=== PATIENT | female | born 1950 | race Caucasian/White ===

== ENCOUNTER 2024-02-06 04:22 | Emergency (ER) | payer BC, MEDICARE ==
[~2024-02-06] VITALS: Ht 160 cm; Wt 68.0 kg
[~2024-02-06 04:22] MED LIST: MAGN400T8 PO
[2024-02-06] MEDS ORDERED: HYDROCODONE/APAP 5/325MG TABLET ONE (04:52)
[2024-02-06] MEDS ORDERED: ONDANSETRON 4 MG TAB.RAPDIS ONE (04:52)
[2024-02-06] MEDS ORDERED: LORAZEPAM 1 MG TABLET ONE (04:52)
[2024-02-06] MEDS: LORAZEPAM 1 MG TABLET PO ONE (04:58)
[2024-02-06] MEDS: HYDROCODONE/APAP 5/325MG TABLET PO ONE (04:59)
[2024-02-06] MEDS: ONDANSETRON 4 MG TAB.RAPDIS SL ONE (04:59)
[2024-02-06 07:26] VITALS: BP 128/65; TEMP 98; O2SAT 100
== END 2024-02-06 07:27 | disposition home or self-care (01) ==
LOC: ER 04:28
DX: M54.41 Lumbago with sciatica, right side (principal); I10 Essential (primary) hypertension; F41.9 Anxiety disorder, unspecified; E03.9 Hypothyroidism, unspecified; Z88.0 Allergy status to penicillin; Z88.2 Allergy status to sulfonamides; Z88.8 Allergy status to other drugs, medicaments and biological substances
CPT/HCPCS: 99284; Q0162

== ENCOUNTER 2025-04-30 06:03 | Emergency (ER) | payer BC, MEDICARE ==
[~2025-04-30] VITALS: Ht 165.1 cm; Wt 72.6 kg
[2025-04-30] MEDS ORDERED: oxyCODONE/APAP (5/325 MG) 1 UDTAB TABLET ONE (06:49)
[2025-04-30] MEDS ORDERED: ONDANSETRON 4 MG TAB.RAPDIS ONE (06:49)
[2025-04-30] MEDS: oxyCODONE/APAP (5/325 MG) 1 UDTAB TABLET PO ONE (06:56)
[2025-04-30] MEDS: ONDANSETRON 4 MG TAB.RAPDIS SL ONE (06:56)
[2025-04-30 08:53] VITALS: BP 151/91; TEMP 97.9; O2SAT 99
== END 2025-04-30 08:54 | disposition home or self-care (01) ==
LOC: ER 06:11
DX: R51.9 Headache, unspecified (principal); I11.9 Hypertensive heart disease without heart failure; E03.9 Hypothyroidism, unspecified; I34.1 Nonrheumatic mitral (valve) prolapse; Z88.0 Allergy status to penicillin; Z88.2 Allergy status to sulfonamides; Z88.6 Allergy status to analgesic agent
CPT/HCPCS: 99283; Q0162

== ENCOUNTER 2025-05-06 13:04 | Emergency (ER) | payer MEDICARE ==
[~2025-05-06] VITALS: Ht 160 cm; Wt 61.2 kg
[2025-05-06] MEDS: ACETAMINOPHEN 325 MG TABLET PO ONE (14:30)
[2025-05-06] MEDS ORDERED: CAPS60CR4 TP (15:11)
[2025-05-06] MEDS ORDERED: ACETAMINOPHEN 325 MG TABLET ONE (15:31)
[2025-05-06 15:44] VITALS: BP 122/69; TEMP 98.3; O2SAT 98
== END 2025-05-06 15:51 | disposition home or self-care (01) ==
LOC: ER 13:37
DX: I11.9 Hypertensive heart disease without heart failure (principal); M54.50 Low back pain, unspecified; R07.89 Other chest pain; M25.562 Pain in left knee; M25.552 Pain in left hip; I34.1 Nonrheumatic mitral (valve) prolapse; E03.9 Hypothyroidism, unspecified; F41.9 Anxiety disorder, unspecified; Z88.6 Allergy status to analgesic agent; Z88.2 Allergy status to sulfonamides; Z88.0 Allergy status to penicillin
CPT/HCPCS: 71045-TC; 72100-TC; 73502; 73564-TC